=== PATIENT | male | born 1990 | race American Indian/Alaskan Native ===

== ENCOUNTER 2018-07-18 23:02 | Emergency (ER) | payer OTHER ==
[2018-07-18 23:43] VITALS: BP 124/68
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
[2018-07-19 00:47] LABS: Hematocrit 38.6 % (35.5-45.6); Hemoglobin 13.7 gm/dl (11.8-15.2); Mean Corpuscular HGB Conc 36 % (32-34); Mean Corpuscular Volume 96 fl (84-94); Platelet Count 175 K/mm3 (140-440); Red Blood Count 4.04 M/mm3 (3.65-5.03); Red Cell Distribution Width 14.2 % (13.2-15.2)
[2018-07-19 01:09] LABS: Partial Thromboplastin Time 28.2 Sec. (24.2-36.6)
[2018-07-19 01:21] LABS: BUN/Creatinine Ratio 13; Blood Urea Nitrogen 12 mg/dL (9-20); Calcium 8.9 mg/dL (8.4-10.2); Hemolysis Index 20
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
== END 2018-07-19 02:38 | disposition short-term general hospital (02) ==
LOC: ED 23:02
DX: M62.81 Muscle weakness (generalized) (principal); M54.9 Dorsalgia, unspecified; M25.512 Pain in left shoulder; V49.49XA Driver injured in collision with other motor vehicles in traffic accident, initial encounter; Y93.89 Activity, other specified; Y92.89 Other specified places as the place of occurrence of the external cause; Y99.8 Other external cause status
CPT/HCPCS: 36415; 71045; 72170; 80048; 82550; 85027; 85610; 85730; 99285; G0480; 80320